=== PATIENT | female | born 1955 | race Caucasian/White ===

== ENCOUNTER → 2019-01-07 | Day surgery (SDC) | payer OTHER ==
[2019-01-02 10:47] LABS: BASOPHILS % 0.4 % (0.0-1.0); EOSINOPHILS # (AUTO) 0.2 (0.0-0.4); EOSINOPHILS % 1.9 % (0.0-6.0); HEMOGLOBIN 12.5 g/dL (12.0-16.0); LYMPHOCYTES # (AUTO) 2.4 (1.0-3.2); LYMPHOCYTES % 23.8 % (18.0-39.1); MEAN CORPUSCULAR HEMOGLOBIN 30.5 pg (28-32); MEAN CORPUSCULAR HGB CONC 32.9 g/dL (31-35); MEAN CORPUSCULAR VOLUME 92.7 fL (81-99); MONOCYTES # (AUTO) 0.8 (0.2-0.8); MONOCYTES % 8.1 % (4.4-11.3); NEUTROPHILS # (AUTO) 6.7 (2.1-6.9); NEUTROPHILS % 65.4 % (38.7-80.0); PLATELET COUNT 328 x10e3/uL (140-360); RED CELL DISTRIBUTION WIDTH 13.8 % (11.7-14.4)
[2019-01-02 11:35] LABS: ALANINE AMINOTRANSFERASE 13 IU/L (0-55); ALBUMIN 3.5 g/dL (3.5-5.0); ALBUMIN/GLOBULIN RATIO 0.9 (0.8-2.0); ALKALINE PHOSPHATASE 58 IU/L (40-150); ANION GAP 11.1 mmol/L (8-16); BLOOD UREA NITROGEN 14 mg/dL (7-26); BUN/CREATININE RATIO 16 (6-25); CARBON DIOXIDE 28 mmol/L (22-29); CHLORIDE 103 mmol/L (98-107); EST GLOMERULAR FILTRATION RATE > 60 ML/MIN (60-); GLUCOSE 88 mg/dL (74-118); POTASSIUM 4.1 mmol/L (3.5-5.1); SODIUM 138 mmol/L (136-145)
[2019-01-07] VITALS (9 sets, daily range): BP systolic 113–136; BP diastolic 65–77
[~2019-01-07] VITALS: Ht 172.7 cm; Wt 69.4 kg
[~2019-01-07] MED LIST: ALPRAZOLAM 0.5 MG TAB ONE; ASPIR 8181 MG PO; BENICAR40 MG PO; CEPHALEXIN500 MG PO; DIPHENHYDRAMINE HCL 25 MG CAP ONE; FENTANYL CITRATE/PF 100MCG/2 ML INJ ONE; FISH OIL 1,0001 EAC2 PO; HEPARIN SOD (PORCINE) 1000 UNIT/ML 30ML ONE; HEPARIN SOD/SOD CHLORIDE 2,000 ML ONE; IOPAMIDOL 370 MG/ML 200 ML INFUS..BTL INJ ONE; LIDOCAINE HCL 2% LOCAL 20 ML VIAL ONE; METOPROLOL SUCC25 MG PO; MIDAZOLAM HCL 2 MG/2 ML VIAL ONE; NEXIUM20 MG PO; NITROGLYCERIN/D5W 200 MCG/ML 250 ML ONE; OXYBUTYNIN CHLOR5 MG PO; SODIUM CHLORIDE 0.9% 1000ML 1,000 ML ONE; SUCRALFATE1 GM PO; VERAPAMIL HCL 2.5 MG/ML 2 ML VIAL ONE
--- NOTE | 2019-01-07 08:45 | NUR ---
0845 Bedside report received from HOMERO Carson.Identifierx2. Alert oriented and appropriate,Back to baseline orientation, PERRLA, respirations even and unlabored to room air. Pulses x4 extremities equal and strong. Pedal pulses PT/DPx4. Cap fill brisk < 3 sec. Left Heart cath no fix CAD dx Rt Trband approach Decrease air at 9am potential dc at 10am. Skin warm and dry integrity appears D/I. IV 20g to left hand presents healthy w/o s/s of infiltration or complaint. Abdomen soft and supple. pt offered toileting, denies need to urinate or defecate. No personal affects with patient. Family daughter in law Bailee at bedside. Pt and family verbalizes understanding of POC. Currently w/o complaint of pain or need. Tolerating po intake ds/homero
--- NOTE | 2019-01-07 09:00 | NUR ---
0900 RADIAL Compression removal: Initial Cuff volume 11 cc -2 cc Removed No hematoma/bleeding noted with normal neurovascular function. 0915 -3 cc Removed No hematoma/ bleeding noted with normal neurovascular function. 0930 -3cc Removed No hematoma/bleeding noted with normal neurovascular function. 0945 -3cc Removed No hematoma/ bleeding noted with normal neurovascular function. Air removal completed. Stasis achieved sterile 2x2,Tegaderm, Coban dressing No hematoma, bleeding noted with normal neurovascular function. Wrist splint in place. Pt instructed on POC. Ds/Rn
--- NOTE | 2019-01-07 10:00 | NUR ---
1000a Pt meets DC criteria. Rt radial assessed for s/s of complication and presecence of hematoma. Skin warm, dry, no discolor, and pulses present. IV removed from left hand. Distal tip appears intact. VS WNL. Pt denies pain, sob, or need at this time. Family at sister in law Crissie [phone]. . Review of discharge paperwork and follow up instructions. verbalized understanding. Pt to wheelchair and transported to front of hospital. Transferred to private vehicle under own strength w/o incident with DC paperwork in hand. - ds/rn
--- NOTE | 2019-01-07 10:52 | Operative Report ---
DATE OF PROCEDURE: 01/07/2019 SURGEON: Carlito Paulino MD INDICATION: Coronary artery disease, abnormal stress test. PROCEDURES PERFORMED: 1. Left heart catheterization, selective coronary angiography, left ventriculography. 2. Deployment of right wrist TR band. COMPLICATIONS: None. BLOOD LOSS: Minimal. RECOMMENDATIONS: Medical therapy. DESCRIPTION OF PROCEDURE: Access obtained in the right radial artery. A 5-Nepali sheath was placed. Coronary angiography demonstrated no angiographic coronary artery disease. Excellent flow in all coronary vessels. No critical stenosis or occlusions were noted. LV ejection fraction 60%. LV end-diastolic pressure of 10. No gradient across aortic valve on pullback. Right wrist guide and sheath were removed. TR band applied. The patient was discharged home same day. Carlito Paulino MD [facility] /[id number]
== END | disposition home or self-care (01) ==
LOC: CATH LAB 06:35
PROVIDERS: ATTEND Internal Medicine Interventional Cardiology
DX: I25.118 Atherosclerotic heart disease of native coronary artery with other forms of angina pectoris (principal); I10 Essential (primary) hypertension; Z88.6 Allergy status to analgesic agent; Z88.1 Allergy status to other antibiotic agents; Z01.812 Encounter for preprocedural laboratory examination; Z79.82 Long term (current) use of aspirin
CPT/HCPCS: 36415; 80053; 85025; 93458; C1769; C1887; J1644; J2001; J2250; J3010; J7030; Q9967